=== PATIENT | female | born 1980 | race Caucasian/White ===

== ENCOUNTER → 2022-07-08 | Outpatient (CLI) | payer OTHER ==
[2022-07-08 16:29] LABS: Basophils # (A) 0.1 k/uL (0-0.2); Basophils % (A) 1 %; Eosinophils # (A) 0.3 k/uL (0-0.7); Eosinophils % (A) 3 %; HCT 39.3 % (34.0-46.0); HGB 13.1 gm/dL (11.4-16.0); Lymphocytes # (A) 3.8 k/uL (1.0-4.8); Lymphocytes % (A) 31 %; MCH 27.5 pg (25.0-35.0); MCHC 33.2 g/dL (31.0-37.0); Mean Platelet Volume 8.8; Monocytes # (A) 0.6 k/uL (0-1.0); Monocytes % (A) 5 %; Neutrophils # (A) 7.2 k/uL (1.3-7.7); Neutrophils % (A) 59 %; Platelet Count 256 k/uL (150-450); RBC 4.74 m/uL (3.80-5.40); RDW 14.3 % (11.5-15.5); WBC 12.1 k/uL (3.8-10.6)
[2022-07-08 16:39] LABS: ALT 15 U/L (4-34); AST 22 U/L (14-36); African American GFR (CKD) >90 (>60 ml/min/1.73 sqM); Albumin 4.5 g/dL (3.5-5.0); Albumin/Globulin Ratio 1.6; Alkaline Phosphatase 110 U/L (38-126); Anion Gap 8 mmol/L; Blood Urea Nitrogen 18 mg/dL (7-17); Calcium 9.2 mg/dL (8.4-10.2); Carbon Dioxide 28 mmol/L (22-30); Chloride 101 mmol/L (98-107); Globulin 2.8 g/dL; Glucose 95 mg/dL (74-99); Non-African American GFR(CKD) >90 (>60 ml/min/1.73 sqM); Potassium 3.7 mmol/L (3.5-5.1); Sodium 137 mmol/L (137-145); Total Bilirubin 0.3 mg/dL (0.2-1.3); Total Protein 7.3 g/dL (6.3-8.2)
[2022-07-08 16:51] LABS: Creatine Kinase MB 0.7 ng/mL (0.0-2.4); Troponin I 0.015 ng/mL (0.000-0.034)
== END | disposition home or self-care (01) ==
LOC: LABWHC1 15:23
PROVIDERS: ATTEND Family Medicine
DX: I34.0 Nonrheumatic mitral (valve) insufficiency (principal); R03.0 Elevated blood-pressure reading, without diagnosis of hypertension
CPT/HCPCS: 36415; 80053; 82553; 83880; 84484; 85025; 85379

== ENCOUNTER 2024-08-22 23:53 | Observation (INO) | payer OTHER ==
--- NOTE | 2024-08-23 00:51 | ED ---
Dizziness HPI - General Source: patient, family Mode of arrival: wheelchair Limitations: no limitations <Omari Lopez - Last Filed: 08/23/24 04:21> <Chad Murray - Last Filed: 08/24/24 06:16> - General Chief Complaint: Syncope Stated Complaint: NV Time Seen by Provider: 08/23/24 00:18 - History of Present Illness Initial Comments: 44-year-old female with history of hypertension and remote history of breast cancer 13 years ago presenting with chief complaint of dizziness. Dizziness started shortly after waking up this morning. She states that she feels very off balance. Admits to nausea, no vomiting. Admits to mild headache. She is also having light sensitivity. No chest pain or difficulty breathing. No abdominal pain or lower extremity swelling. No vision loss or double vision. No numbness tingling or weakness. No recent injury or recent illness. (Omari Lopez) - Related Data Home Medications Medication Instructions Recorded Confirmed Losartan Potassium [Cozaar] 100 mg PO DAILY 08/23/24 08/23/24 hydroCHLOROthiazide [Hydrodiuril] 25 mg PO DAILY 08/23/24 08/23/24 Previous Rx's Medication Instructions Recorded Meclizine [Antivert] 25 mg PO BID PRN #20 tab 08/23/24 Ondansetron Odt [Zofran Odt] 4 mg PO Q8HR PRN #20 tab 08/23/24 Allergies Allergy/AdvReac Type Severity Reaction Status Date / Time hydromorphone [From Dilaudid] AdvReac Rash/Hives Verified 08/23/24 07:37 Review of Systems ROS Other: All systems not noted in ROS Statement are negative. <Omari Lopez - Last Filed: 08/23/24 04:21> ROS Other: All systems not noted in ROS Statement are negative. <Chad Murray - Last Filed: 08/24/24 06:16> ROS Statement: Those systems with pertinent positive or pertinent negative responses have been documented in the HPI. Past Medical History Past Medical History: Cancer, Hypertension Additional Past Medical History / Comment(s): CA breast History of Any Multi-Drug Resistant Organisms: None Reported Past Surgical History: Breast Surgery Additional Past Surgical History / Comment(s): double masectomy Past Psychological History: No Psychological Hx Reported Smoking Status: Never smoker Past Alcohol Use History: None Reported Past Drug Use History: None Reported <JessicaDamionmarjorie - Last Filed: 08/23/24 04:21> General Exam Limitations: no limitations General appearance: alert, in no apparent distress Head exam: Present: atraumatic, normocephalic, normal inspection Neck exam: Present: normal inspection. Absent: meningismus Respiratory exam: Present: normal lung sounds bilaterally. Absent: respiratory distress, wheezes, rales, rhonchi, stridor Cardiovascular Exam: Present: regular rate, normal rhythm, normal heart sounds. Absent: systolic murmur, diastolic murmur, rubs, gallop, clicks Extremities exam: Absent: pedal edema Neurological exam: Present: alert, oriented X3 Psychiatric exam: Present: normal affect, normal mood Skin exam: Present: warm, dry <Omari Lopez - Last Filed: 08/23/24 04:21> General appearance: alert, in no apparent distress Head exam: Present: atraumatic, normocephalic, normal inspection Eye exam: Present: normal appearance, PERRL, EOMI. Absent: scleral icterus, conjunctival injection, periorbital swelling ENT exam: Present: normal exam, mucous membranes moist Neck exam: Present: normal inspection. Absent: tenderness, meningismus, lymphadenopathy Respiratory exam: Present: normal lung sounds bilaterally. Absent: respiratory distress, wheezes, rales, rhonchi, stridor Cardiovascular Exam: Present: regular rate, normal rhythm, normal heart sounds. Absent: systolic murmur, diastolic murmur, rubs, gallop, clicks GI/Abdominal exam: Present: soft, normal bowel sounds. Absent: distended, tenderness, guarding, rebound, rigid Extremities exam: Present: normal inspection, full ROM, normal capillary refill. Absent: tenderness, pedal edema, joint swelling, calf tenderness Back exam: Present: normal inspection Neurological exam: Present: alert, oriented X3, CN II-XII intact Psychiatric exam: Present: normal affect, normal mood Skin exam: Present: warm, dry, intact, normal color. Absent: rash <Chad Murray - Last Filed: 08/24/24 06:16> Course Vital Signs 08/23/24 08/23/24 08/23/24 00:12 01:15 04:20 Temperature 97.4 F L Pulse Rate 68 58 L 69 Respiratory 20 18 18 Rate Blood Pressure 150/95 143/88 153/100 O2 Sat by Pulse 98 96 99 Oximetry 08/23/24 08/23/24 08/23/24 07:20 12:04 15:39 Temperature 97.7 F Pulse Rate 69 66 63 Respiratory 18 16 16 Rate Blood Pressure 142/86 144/100 152/99 O2 Sat by Pulse 98 99 100 Oximetry Medical Decision Making - Lab Data Result diagrams: 08/23/24 00:58 08/23/24 00:58 <Omari Lopez - Last Filed: 08/23/24 04:21> - Lab Data Result diagrams: 08/23/24 00:58 08/23/24 00:58 <Chad Murray - Last Filed: 08/24/24 06:16> - Medical Decision Making 44 female with initial plan to discharge home coming in for persistent vertiginous symptoms and now ataxia patient will be admitted as an (Chad Murray) - Lab Data Lab Results 08/23/24 08/23/24 08/23/24 Range/Units 00:58 00:58 00:58 WBC 11.8 H (3.8-10.6) k/uL RBC 4.58 (3.80-5.40) m/uL Hgb 12.4 (11.4-16.0) gm/dL Hct 38.2 (34.0-46.0) % MCV 83.4 (80.0-100.0) fL MCH 27.0 (25.0-35.0) pg MCHC 32.4 (31.0-37.0) g/dL RDW 14.6 (11.5-15.5) % Plt Count 240 (150-450) k/uL MPV 8.4 Neutrophils % 76 % Lymphocytes % 18 % Monocytes % 3 % Eosinophils % 1 % Basophils % 1 % Neutrophils # 9.0 H (1.3-7.7) k/uL Lymphocytes # 2.2 (1.0-4.8) k/uL Monocytes # 0.4 (0-1.0) k/uL Eosinophils # 0.1 (0-0.7) k/uL Basophils # 0.1 (0-0.2) k/uL Sodium 137 (137-145) mmol/L Potassium 3.7 (3.5-5.1) mmol/L Chloride 99 (98-107) mmol/L Carbon Dioxide 26 (22-30) mmol/L Anion Gap 12 mmol/L BUN 21 H (7-17) mg/dL Creatinine 0.71 (0.52-1.04) mg/dL Est GFR (CKD-EPI)AfAm >90 (>60 ml/min/1.73 sqM) Est GFR (CKD-EPI)NonAf >90 (>60 ml/min/1.73 sqM) Glucose 148 H (74-99) mg/dL Plasma Lactic Acid Lonnie 1.6 (0.7-2.0) mmol/L Calcium 9.4 (8.4-10.2) mg/dL Total Bilirubin 0.4 (0.2-1.3) mg/dL AST 24 (14-36) U/L ALT 15 (4-34) U/L Alkaline Phosphatase 95 (38-126) U/L Troponin I (0.000-0.034) ng/mL Total Protein 7.7 (6.3-8.2) g/dL Albumin 4.4 (3.5-5.0) g/dL 08/23/24 Range/Units 00:58 WBC (3.8-10.6) k/uL RBC (3.80-5.40) m/uL Hgb (11.4-16.0) gm/dL Hct (34.0-46.0) % MCV (80.0-100.0) fL MCH (25.0-35.0) pg MCHC (31.0-37.0) g/dL RDW (11.5-15.5) % Plt Count (150-450) k/uL MPV Neutrophils % % Lymphocytes % % Monocytes % % Eosinophils % % Basophils % % Neutrophils # (1.3-7.7) k/uL Lymphocytes # (1.0-4.8) k/uL Monocytes # (0-1.0) k/uL Eosinophils # (0-0.7) k/uL Basophils # (0-0.2) k/uL Sodium (137-145) mmol/L Potassium (3.5-5.1) mmol/L Chloride (98-107) mmol/L Carbon Dioxide (22-30) mmol/L Anion Gap mmol/L BUN (7-17) mg/dL Creatinine (0.52-1.04) mg/dL Est GFR (CKD-EPI)AfAm (>60 ml/min/1.73 sqM) Est GFR (CKD-EPI)NonAf (>60 ml/min/1.73 sqM) Glucose (74-99) mg/dL Plasma Lactic Acid Lonnie (0.7-2.0) mmol/L Calcium (8.4-10.2) mg/dL Total Bilirubin (0.2-1.3) mg/dL AST (14-36) U/L ALT (4-34) U/L Alkaline Phosphatase (38-126) U/L Troponin I <0.012 (0.000-0.034) ng/mL Total Protein (6.3-8.2) g/dL Albumin (3.5-5.0) g/dL Disposition Is patient prescribed a controlled substance at d/c from ED?: No <Omari Lopez - Last Filed: 08/23/24 04:21> Is patient prescribed a controlled substance at d/c from ED?: No <Chad Murray - Last Filed: 08/24/24 06:16> Clinical Impression: Vertigo, Ataxia Disposition: ADMITTED IP TO THIS HOSP Condition: Good
[2024-08-23] MEDS: SODIUM CHLORIDE 0.9% 1,000 ML IV STA ×3 (01:49→05:35)
[2024-08-23] MEDS: ONDANSETRON 4 MG/2 ML VIAL IVP STA (01:49)
[2024-08-23] MEDS: MECLIZINE 12.5 MG TAB PO STA (01:50)
[2024-08-23 01:58] LABS: Basophils # (A) 0.1 k/uL (0-0.2); Basophils % (A) 1 %; Eosinophils # (A) 0.1 k/uL (0-0.7); Eosinophils % (A) 1 %; HCT 38.2 % (34.0-46.0); HGB 12.4 gm/dL (11.4-16.0); Lymphocytes # (A) 2.2 k/uL (1.0-4.8); Lymphocytes % (A) 18 %; MCHC 32.4 g/dL (31.0-37.0); MCV 83.4 fL (80.0-100.0); Mean Platelet Volume 8.4; Monocytes # (A) 0.4 k/uL (0-1.0); Monocytes % (A) 3 %; Neutrophils % (A) 76 %; Platelet Count 240 k/uL (150-450); RBC 4.58 m/uL (3.80-5.40); RDW 14.6 % (11.5-15.5); WBC 11.8 k/uL (3.8-10.6)
[2024-08-23 02:46] LABS: ALT 15 U/L (4-34); AST 24 U/L (14-36); African American GFR (CKD) >90 (>60 ml/min/1.73 sqM); Albumin 4.4 g/dL (3.5-5.0); Alkaline Phosphatase 95 U/L (38-126); Anion Gap 12 mmol/L; Blood Urea Nitrogen 21 mg/dL (7-17); Calcium 9.4 mg/dL (8.4-10.2); Carbon Dioxide 26 mmol/L (22-30); Chloride 99 mmol/L (98-107); Glucose 148 mg/dL (74-99); Non-African American GFR(CKD) >90 (>60 ml/min/1.73 sqM); Potassium 3.7 mmol/L (3.5-5.1); Sodium 137 mmol/L (137-145); Total Bilirubin 0.4 mg/dL (0.2-1.3); Total Protein 7.7 g/dL (6.3-8.2)
--- NOTE | 2024-08-23 03:13 | CT ---
EXAM: CT Head Without Intravenous Contrast CLINICAL HISTORY: ITS.REASON CT Reason: dizziness TECHNIQUE: Axial computed tomography images of the head/brain without intravenous contrast. CTDI is 49.2 mGy and DLP is 1139.4 mGy-cm. This CT exam was performed using one or more of the following dose reduction techniques: automated exposure control, adjustment of the mA and/or kV according to patient size, and/or use of iterative reconstruction technique. COMPARISON: No relevant prior studies available. FINDINGS: Brain: No hemorrhage or mass effect. Ventricles: No hydrocephalus. Bones/joints: Unremarkable. Soft tissues: Unremarkable. Sinuses: No air fluid level. Mastoid air cells: Clear. IMPRESSION: No acute hemorrhage, hydrocephalus, or mass effect.
[2024-08-23] MEDS: METOCLOPRAMIDE 5 MG/ML 2 ML VIAL IVP STA (03:33)
[2024-08-23] MEDS: SCOPOLAMINE 1 MG/72 HR PATCH TRANSDERM STA (04:20)
[2024-08-23] MEDS ORDERED: NALOXONE 0.4 MG/ML 1 ML VIAL IV PRN (05:11)
[2024-08-23] MEDS ORDERED: ONDANSETRON 4 MG/2 ML VIAL IVP PRN (05:11)
[2024-08-23] MEDS ORDERED: KETOROLAC 15 MG/ML 1 ML VIAL IVP PRN (05:11)
[2024-08-23] MEDS: SODIUM CHLORIDE 0.9% 1,000 ML IV SCH (05:35)
--- NOTE | 2024-08-23 06:01 | P.HPIM ---
History of Present Illness H&P Date: 08/23/24 Chief Complaint: dizziness 44-year-old female with hypertension, obesity, history of breast cancer Patient coming in for evaluation of sudden onset dizziness. She reports that she has been at her baseline status of health this morning feeling fine she was playing a game on her phone then after an hour or 2 when she decided to get out of bed she was feeling extremely dizzy denies any ringing voices in the ears any headache denies any vision changes except from some light sensitivity denies any fevers chills denies any known sick contacts denies any head trauma or injury. She took it easy all day she did not feel like eating any of her meals however she felt like her symptoms were getting worse throughout the day started to become associated with feeling nauseous anytime she tries to get up and walk around she struggled to get to the bathroom at home where she had to crawl back to her seat and started throwing up. After which she decided to come to the hospital for evaluation Again she denies any upper respiratory infection symptoms denies any chest pain trouble breathing denies any abdominal pain changes in bowel or urinary habits Patient has an IUD device, denies any abnormal vaginal bleeding. Patient denies any street drugs or smoking review of systems Pertinent positives as noted in HPI. All other systems were reviewed and are negative on exam Constitutional: No acute distress, conversant, pleasant Eyes: Anicteric sclerae, moist conjunctiva, Pupils equal round reactive to light ENMT: NC/AT Oropharynx clear, no erythema, or exudates Lungs: Clear to auscultation Clear to percussion Normal respiratory effort, no accessory muscle use Cardiovascular: Heart regular in rate and rhythm, No murmurs, gallops, or rubs No peripheral edema Abdominal: Soft Nontender, no guarding, rebound or rigidity Abdomen moving with respiration Normoactive bowel sounds Extremities: No digital cyanosis No clubbing Pedal pulses intact and symmetrical Radial pulses intact and symmetrical No calf tenderness Psychiatric: Alert and oriented to person, place and time Appropriate affect fair judgement Neuro Muscles Strength 5/5 in all 4 extremities , no nystagmus Sensation to light touch grossly present throughout Cranial nerves II-XII grossly intact Past Medical History Past Medical History: Cancer, Hypertension Additional Past Medical History / Comment(s): CA breast History of Any Multi-Drug Resistant Organisms: None Reported Past Surgical History: Breast Surgery Additional Past Surgical History / Comment(s): double masectomy Past Psychological History: No Psychological Hx Reported Smoking Status: Never smoker Past Alcohol Use History: None Reported Past Drug Use History: None Reported Medications and Allergies Home Medications Medication Instructions Recorded Confirmed Type Meclizine [Antivert] 25 mg PO BID PRN #20 tab 08/23/24 Rx Ondansetron Odt [Zofran Odt] 4 mg PO Q8HR PRN #20 tab 08/23/24 Rx Allergies Allergy/AdvReac Type Severity Reaction Status Date / Time hydromorphone [From Dilaudid] AdvReac Rash/Hives Verified 08/23/24 00:13 Physical Exam Vitals: Vital Signs Temp Pulse Resp BP Pulse Ox 08/23/24 01:15 58 L 18 143/88 96 08/23/24 00:12 97.4 F L 68 20 150/95 98 Intake and Output 08/22/24 08/22/24 08/23/24 14:59 22:59 06:59 Other: Weight 106.594 kg Results CBC & Chem 7: 08/23/24 00:58 08/23/24 00:58 Labs: Abnormal Lab Results - Last 24 Hours (Table) 08/23/24 08/23/24 Range/Units 00:58 00:58 WBC 11.8 H (3.8-10.6) k/uL Neutrophils # 9.0 H (1.3-7.7) k/uL BUN 21 H (7-17) mg/dL Glucose 148 H (74-99) mg/dL Assessment and Plan Assessment: 44-year-old female with hypertension, obesity, history of breast cancer coming in for sudden onset dizziness I discussed case with ED doctor and accepted the admission for neurologic evaluation Dizziness CT of the brain no acute intracranial pathology Fall precautions Meclizine 25 mg 3 times daily Neurology evaluation Check urine test Slightly elevated white count 11.8 afebrile Cardiac monitoring Check EKG Blood work overall unremarkable hemoglobin 12.4, sodium 137 potassium 3.7 troponins negative BUN 21 creatinine 0.7 all unremarkable Hypertension Verify home medication of losartan Full code DVT prophylaxis Lovenox 40 mg subcu daily
[2024-08-23 07:21] VITALS: TEMP 97.7
[2024-08-23] MEDS: MECLIZINE 25 MG TAB PO SCH (08:15)
[2024-08-23] MEDS: ENOXAPARIN 40 MG/0.4 ML SYRINGE SQ SCH (08:16)
[2024-08-23 12:05] VITALS: RESP 16
[2024-08-23 15:39] VITALS: BP 152/99; PULSE 63
--- NOTE | 2024-08-23 16:30 | P.DS ---
Providers Date of admission: 08/23/24 05:11 Expected date of discharge: 08/23/24 Attending physician: David Centeno MD Primary care physician: Celso Hidalgo [facility] Course: Discharge Diagnosis: Dizziness Benign paroxysmal positional vertigo Hypertension Hyperglycemia Hospital course: 44-year-old female with hypertension, obesity, history of breast cancer. Patient coming in for evaluation of sudden onset dizziness. She reports that she has been at her baseline status of health this morning feeling fine she was playing a game on her phone then after an hour or 2 when she decided to get out of bed she was feeling extremely dizzy denies any ringing voices in the ears any headache denies any vision changes except from some light sensitivity denies any fevers chills denies any known sick contacts denies any head trauma or injury. She took it easy all day she did not feel like eating any of her meals however she felt like her symptoms were getting worse throughout the day started to become associated with feeling nauseous anytime she tries to get up and walk around she struggled to get to the bathroom at home where she had to crawl back to her seat and started throwing up. After which she decided to come to the hospital for evaluation. Again she denies any upper respiratory infection symptoms denies any chest pain trouble breathing denies any abdominal pain changes in bowel or urinary habits. Patient has an IUD device, denies any abnormal vaginal bleeding. Patient denies any street drugs or smoking. Patient admitted to internal medicine floor for further assessment of dizziness. 08/23/2024: Patient seen and examined at bedside. No acute events overnight. She states she is feeling much better this morning. She reported that she went to bathroom earlier, and did not feel as dizzy. Patient states dizziness occurs with positional changes especially when she is going from a seated position to standing position, and with head rotation. She states it is 1st time this has happened to her. While admitted patient received Antivert and is being discharged with that. She was given exercises on how to help mitigate vertigo. She is to follow-up with her PCP and report back to the ED with any new or worsening symptoms. She is being discharged home. Pertinent positives and negatives as discussed above, a complete review of systems was performed and all other systems are negative. Vitals: Signs Reviewed Physical Exam: General: nontoxic, no distress, appears at stated age Derm: warm, dry, intact Head: atraumatic, normocephalic, symmetric Eyes: EOMI, anicteric sclera, horizontal nystagmus Mouth: no lip lesion, mucus membranes moist Cardiovascular: S1 S2 reg, no murmur, rubs, or gallops Lungs: CTA bilateral, no rhonchi, no rales, no accessory muscle use Abdominal: soft, non-tender to palpataion, no appreciable organomegaly Extremities: no gross muscle atrophy, no edema, no contractures Neuro: Alert, Oriented, CNII-XII grossly intact, gait normal Psych: well appearing, appropriate affect A total of 36 minutes of time were spent preparing this complex discharge summary. Patient was discharge on 08/23/2024 at 16:11. Willy Panye MD PGY-1 IM Dictation was produced using [employer] dictation software. please excuse any grammatical, word or spelling errors. I have seen and evaluated the patient today. Discussed with the resident and agree with the residents finding and plan as documented in the resident's note. Changes highlighted in blue font. Patient Condition at Discharge: Good Plan - Discharge Summary New Discharge Prescriptions: New Meclizine [Antivert] 25 mg PO BID PRN #20 tab PRN Reason: Vertigo Ondansetron Odt [Zofran Odt] 4 mg PO Q8HR PRN #20 tab PRN Reason: Nausea Continue Losartan Potassium [Cozaar] 100 mg PO DAILY hydroCHLOROthiazide [Hydrodiuril] 25 mg PO DAILY Discharge Medication List Losartan Potassium [Cozaar] 100 mg PO DAILY 08/23/24 [History] Meclizine [Antivert] 25 mg PO BID PRN #20 tab 08/23/24 [Rx] Ondansetron Odt [Zofran Odt] 4 mg PO Q8HR PRN #20 tab 08/23/24 [Rx] hydroCHLOROthiazide [Hydrodiuril] 25 mg PO DAILY 08/23/24 [History] Follow up Appointment(s)/Referral(s): Celso Hidalgo MD [Primary Care Provider] - 1-2 days Patient Instructions/Handouts: Vertigo (ED) Activity/Diet/Wound Care/Special Instructions: Follow-up with your PCP. Report back to ER with any new or worsening symptoms. Discharge Disposition: HOME SELF-CARE
[2024-08-24] MEDS ORDERED: LOSARTAN 50 MG TAB PO SCH (09:00)
[2024-08-24] MEDS ORDERED: hydroCHLOROthiazide 25 MG TAB PO SCH (09:00)
[2024-08-24] MEDS ORDERED: ENOXAPARIN 40 MG/0.4 ML SYRINGE SQ SCH (09:00)
== END 2024-08-23 16:37 | disposition home or self-care (01) ==
LOC: EC 23:53 → 6NMEDSUR 08-23 05:11
PROVIDERS: ADMIT Internal Medicine; ATTEND Internal Medicine
DX: H81.10 Benign paroxysmal vertigo, unspecified ear (principal); I10 Essential (primary) hypertension; R73.9 Hyperglycemia, unspecified; E66.9 Obesity, unspecified; Z68.41 Body mass index [BMI] 40.0-44.9, adult; Z85.3 Personal history of malignant neoplasm of breast; Z79.899 Other long term (current) drug therapy; Z88.5 Allergy status to narcotic agent
CPT/HCPCS: 96374; 96375; 99285; 36415; 93005; 80053; 83605; 84484; 85025; 81025; 70450; G0378; J2765; J3360; J2405